=== PATIENT | male | born 1980 | race Caucasian/White ===

== ENCOUNTER 2017-05-29 08:19 | Emergency (ER) | payer SELFPAY ==
[~2017-05-29] VITALS: Ht 162.6 cm; Wt 63.5 kg
[2017-05-29 08:44] VITALS: BP 137/82
--- NOTE | 2017-05-29 08:47 | NUR ---
PATIENT TO OF1 AT THIS TIME.
--- NOTE | 2017-05-29 08:48 | NUR ---
37/M BIB C/O RASHES & EPIGASTRIC PAIN & RADIATES TO BACK X2 DAYS. PT DENIES ANY MEDICAL HX. DENIES N/V/D; AAOX4 WITH EVEN AND STEADY GAIT; LUNGS CLEAR BL; HR EVEN AND REGULAR; PT DENIES ANY FEVER, SOB, OR COUGH AT THIS TIME; PATIENT STATES PAIN OF 9/10 AT THIS TIME; VSS; PATIENT POSITIONED FOR COMFORT; HOB ELEVATED; BEDRAILS UP X2; BED DOWN. ER MD MADE AWARE OF PT STATUS.
--- NOTE | 2017-05-29 08:48 | NUR ---
Note undone in EDM - 05/29/17 at 0856 by [email or web address] PT PRESENTS TO ER W/C/O EPIGASTRIC PAIN X2 DAYS. PT DENIES ANY MEDICAL HX. DENIES N/V/D; SKIN IS PINK/WARM/DRY; AAOX4 WITH EVEN AND STEADY GAIT; LUNGS CLEAR BL; HR EVEN AND REGULAR; PT DENIES ANY FEVER, SOB, OR COUGH AT THIS TIME; PATIENT STATES PAIN OF 9/10 AT THIS TIME; VSS; PATIENT POSITIONED FOR COMFORT; HOB ELEVATED; BEDRAILS UP X2; BED DOWN. ER MADE AWARE OF PT STATUS.
[2017-05-29] MEDS ORDERED: predniSONE 20 MG TAB PO ONE (08:55)
[2017-05-29] MEDS ORDERED: oxyCODONE 5 MG TAB PO ONE (08:55)
[2017-05-29] MEDS ORDERED: oxyCODONE 5 MG TAB PO SCH (09:01)
--- NOTE | 2017-05-29 09:03 | NUR ---
CALLED PHARMACY FOR ROCICODONE.
--- NOTE | 2017-05-29 09:12 | NUR ---
GAVE MEDS ORDER.
--- NOTE | 2017-05-29 09:26 | NUR ---
Patient discharged with v/s stable. Written and verbal after care instructions given and explained. Patient alert, oriented and verbalized understanding of instructions. Ambulatory with steady gait. All questions addressed prior to discharge. ID band removed. Patient advised to follow up with PMD. Rx of VALTREX, OXYCODONE & PREDNISONE given. Patient educated on indication of medication including possible reaction and side effects. Opportunity to ask questions provided and answered.
[2017-05-29 09:27] VITALS: BP 121/76
== END 2017-05-29 09:26 | disposition home or self-care (01) ==
LOC: MED 08:19
DX: B02.9 Zoster without complications (principal); R10.13 Epigastric pain
CPT/HCPCS: 99283; J7512